=== PATIENT | male | born 1960 | race African-American/Black ===

== ENCOUNTER → 2018-09-03 | Day surgery (SDC) | payer MEDICARE ==
[2018-09-02 14:22] VITALS: BMI 48.6
--- NOTE | 2018-09-03 15:07 | OP ---
DATE OF PROCEDURE: 09/03/2018 INDICATION FOR PROCEDURE: Screening for malignant neoplasm of the colon. PROCEDURES PERFORMED: Colonoscopy with polypectomy. DESCRIPTION OF PROCEDURE: After the risks and benefits of the procedure were explained to the patient including risks of bleeding, infection, perforation, reactions to anesthesia, aspiration and/or pain, informed consent was obtained. The patient was then taken to the endoscopy suite, where deep sedation was administered via propofol and anesthesia support. Once adequate sedation was achieved, the standard colonoscope was introduced into the rectum and advanced to the cecum with some difficulty requiring manual abdominal pressure to facilitate passage of the passage of the scope secondary to colonic redundancy. The quality of the prep was good. The patient tolerated the procedure well with no immediate perioperative complications. Upon conclusion of the procedure, the patient was taken to Day Stay in satisfactory condition. FINDINGS: Digital rectal exam: Normal findings seen on external examination. Colon findings: Normal-appearing mucosa was seen in both the ileocecal valve and appendiceal orifice. Two polyps measuring 3 mm and 8 to 9 mm were seen in the cecum and completely removed with cold snare polypectomy and snare cautery polypectomy respectively. Both polyps were retrieved and placed in a specimen jar for evaluation. Normal-appearing mucosa was then seen in the ascending colon and transverse colon. Two additional polyps, were seen in the descending colon measuring 3 mm in size and 4 to 5 mm in size. Both polyps were completely removed with cold snare polypectomy. They were retrieved and placed in a specimen jar for evaluation. Normal-appearing mucosa was then seen in the distal descending sigmoid colon and rectum. Small internal hemorrhoids were seen on rectal retroflexion. IMPRESSION: 1. A 3 mm and 8 to 9 mm cecal polyps, status post cold snare and hot snare polypectomy respectively. 2. Two descending colon polyps measuring 3 mm and 4 to 5 mm, status post cold snare polypectomy. 3. Small internal hemorrhoids. RECOMMENDATIONS: 1. We will follow up on the biopsy results with repeat colonoscopy interval based on pathology results. 2. We would recommend a higher fiber diet given the presence of internal hemorrhoids. 3. Would follow up in the GI clinic as needed. Job ID: [id number]
== END ==
LOC: SDC 11:23
PROVIDERS: ATTEND Internal Medicine
PROC: 0DBH8ZZ Excision of Cecum, Via Natural or Artificial Opening Endoscopic (ICD-10-PCS; principal; 2018-09-03)
PROC: 0DBM8ZZ Excision of Descending Colon, Via Natural or Artificial Opening Endoscopic (ICD-10-PCS; 2018-09-03)
DX: Z12.11 Encounter for screening for malignant neoplasm of colon (principal); D12.0 Benign neoplasm of cecum; D12.4 Benign neoplasm of descending colon; K64.8 Other hemorrhoids; I10 Essential (primary) hypertension; E11.9 Type 2 diabetes mellitus without complications; E78.00 Pure hypercholesterolemia, unspecified; G47.30 Sleep apnea, unspecified; K21.9 Gastro-esophageal reflux disease without esophagitis; M10.9 Gout, unspecified; E66.01 Morbid (severe) obesity due to excess calories; Z68.42 Body mass index [BMI] 45.0-49.9, adult; Z79.84 Long term (current) use of oral hypoglycemic drugs; Z79.899 Other long term (current) drug therapy; Z87.891 Personal history of nicotine dependence
CPT/HCPCS: 36416; 88305

== ENCOUNTER 2020-10-02 19:30 | Outpatient (CLI) | payer MEDICARE | END 2020-10-02 19:31 | disposition home or self-care (01) | LOC: SLEEPLAB 19:30 | PROVIDERS: ATTEND Family Medicine | DX: G47.33 Obstructive sleep apnea (adult) (pediatric) (principal); R53.83 Other fatigue; R06.83 Snoring; E11.9 Type 2 diabetes mellitus without complications; I10 Essential (primary) hypertension; G47.00 Insomnia, unspecified; G47.10 Hypersomnia, unspecified; K21.9 Gastro-esophageal reflux disease without esophagitis; E66.9 Obesity, unspecified; Z68.42 Body mass index [BMI] 45.0-49.9, adult | CPT/HCPCS: 95810 ==

== ENCOUNTER 2020-11-01 19:30 | Outpatient (CLI) | payer MEDICARE | END 2020-11-01 19:31 | disposition home or self-care (01) | LOC: SLEEPLAB 19:30 | PROVIDERS: ATTEND Family Medicine | DX: G47.33 Obstructive sleep apnea (adult) (pediatric) (principal); R06.83 Snoring; G47.00 Insomnia, unspecified; G47.10 Hypersomnia, unspecified; I10 Essential (primary) hypertension; E11.9 Type 2 diabetes mellitus without complications; E66.9 Obesity, unspecified; Z68.42 Body mass index [BMI] 45.0-49.9, adult | CPT/HCPCS: 95811 ==

== ENCOUNTER 2021-11-30 19:00 | Outpatient (CLI) | payer MEDICARE | END 2021-11-30 19:01 | disposition home or self-care (01) | LOC: SLEEPLAB 19:00 | PROVIDERS: ATTEND Family Medicine | DX: G47.33 Obstructive sleep apnea (adult) (pediatric) (principal); R53.83 Other fatigue; R09.89 Other specified symptoms and signs involving the circulatory and respiratory systems; E66.9 Obesity, unspecified; K21.9 Gastro-esophageal reflux disease without esophagitis; I10 Essential (primary) hypertension; E11.9 Type 2 diabetes mellitus without complications; R06.83 Snoring; Z68.42 Body mass index [BMI] 45.0-49.9, adult | CPT/HCPCS: 95810 ==

== ENCOUNTER 2021-12-31 19:30 | Outpatient (CLI) | payer MEDICARE | END 2021-12-31 19:31 | disposition home or self-care (01) | LOC: SLEEPLAB 19:30 | PROVIDERS: ATTEND Family Medicine | DX: G47.33 Obstructive sleep apnea (adult) (pediatric) (principal); R53.83 Other fatigue; R09.89 Other specified symptoms and signs involving the circulatory and respiratory systems; K21.9 Gastro-esophageal reflux disease without esophagitis; R06.83 Snoring; I10 Essential (primary) hypertension; E11.9 Type 2 diabetes mellitus without complications; G47.10 Hypersomnia, unspecified; E66.9 Obesity, unspecified; Z68.42 Body mass index [BMI] 45.0-49.9, adult | CPT/HCPCS: 95811 ==